=== PATIENT | female | born 1955 | race African-American/Black ===

== ENCOUNTER 2019-02-06 05:42 | Emergency (ER) | payer OTHER ==
[~2019-02-06] VITALS: Ht 177.8 cm; Wt 46.3 kg
[2019-02-06] MEDS ORDERED: CALCIUM 500 +1 EAC5 PO (06:00)
[2019-02-06 06:25] LABS: HEMATOCRIT 38.7 % (37.0-47.0); HEMOGLOBIN 12.7 gm/dL (12.0-15.0); MCH 29.5 pg (26.0-34.0); MCHC 32.7 g/dL (28.0-37.0); MCV 90.1 fL (80.0-100.0); PLATELET COUNT 160 thou/uL (150-400); RDW 16.3 % (10.5-14.5); WBC 4.2 thou/uL (4.0-11.0)
[2019-02-06 06:29] LABS: ANION GAP 11 mmol/L (7-16); BUN 22 mg/dL (7-18); CALCIUM 8.7 mg/dL (8.5-10.1); CHLORIDE 100 mmol/L (98-107); CO2 28 mmol/L (21-32); GLUCOSE 112 mg/dL (74-106); POTASSIUM 3.7 mmol/L (3.5-5.1); SODIUM 139 mmol/L (136-145)
[2019-02-06 06:38] LABS: ALBUMIN 3.2 g/dL (3.4-5.0); LIPASE 106 U/L (73-393); SGOT 23 U/L (15-37); SGPT 17 U/L (30-65); TOTAL BILIRUBIN 1.3 mg/dL (<0.1-1.0); TOTAL PROTEIN 7.7 g/dL (6.4-8.2); TROPONIN-I <0.06 ng/mL (<0.06)
[2019-02-06 07:46] LABS: URINE BILIRUBIN NEGATIVE (Negative); URINE BLOOD NEGATIVE (Negative); URINE CLARITY CLEAR; URINE COLOR YELLOW; URINE GLUCOSE-RANDOM* NEGATIVE (Negative); URINE KETONES TRACE (Negative); URINE LEUKOCYTES-REFLEX NEGATIVE (Negative); URINE NITRITE-REFLEX NEGATIVE (Negative); URINE PROTEIN (DIPSTICK) NEGATIVE (Negative); URINE UROBILINOGEN 0.2 E.U./dl (0.2-1.0)
[2019-02-06 07:52] LABS: ABSOLUTE NEUTROPHILS 1.8 thou/uL (1.4-8.2); ATYPICAL LYMPHS 5 %
[2019-02-06 07:54] LABS: ANISOCYTOSIS SLIGHT; POIKILOCYTOSIS SLIGHT
--- NOTE | 2019-02-06 09:17 | EKG ---
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1955 Requested By: Matt Chery Order Number: [id number] MD: Joe Rosas Measurements Intervals [place] Rate: 103 P: 74 [place]: 114 QRS: 58 QRSD: 69 T: 42 QT: 321 QTc: 420 Interpretive Statements Sinus tachycardia Otherwise normal tracing No previous ECG available for comparison Electronically Signed On 02-06-2019 9:17:22 CDT by Joe Rosas [email or web address] ��������������������������������������������� <ELECTRONICALLY SIGNED> ���������������������������������������� By: Joe Rosas MD, [facility] ��������������������������������������������� 02/06/19 0917 0600 0600 Joe Rosas MD, FACC /EPI
[2019-02-06] MEDS ORDERED: BENTYL 10 MG CA10 M1 PO (10:48)
[2019-02-06] MEDS ORDERED: OXYCODONE HCL 55 MG PO (10:58)
[2019-02-06 11:04] VITALS: BP 121/73
== END 2019-02-06 11:05 | disposition home or self-care (01) ==
LOC: ER 05:42
PROVIDERS: Emergency Medicine
DX: K52.9 Noninfective gastroenteritis and colitis, unspecified (principal); Z88.6 Allergy status to analgesic agent; Z88.8 Allergy status to other drugs, medicaments and biological substances